=== PATIENT | male | born 1965 | race African-American/Black ===

== ENCOUNTER 2020-02-18 00:43 | Emergency (ER) | payer SELFPAY ==
[~2020-02-18] VITALS: Ht 180.3 cm; Wt 108.9 kg
[2020-02-18 00:50] VITALS: BP 128/88
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
[2020-02-18 01:00] VITALS: BP 128/88
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
== END 2020-02-18 01:15 | disposition left against medical advice (07) ==
LOC: EDBD 00:43 → MERGE 01:06 → EMR 01:06
DX: Z00.00 Encounter for general adult medical examination without abnormal findings (principal); Z59.0 Homelessness
CPT/HCPCS: 99281